=== PATIENT | female | born 1975 | race Caucasian/White ===

== ENCOUNTER 2021-02-22 07:45 | Outpatient (CLI) | payer BC | END 2021-02-22 07:46 | disposition home or self-care (01) | LOC: CSHCT 07:45 | PROVIDERS: ATTEND Family Medicine | DX: K46.9 Unspecified abdominal hernia without obstruction or gangrene (principal); K42.9 Umbilical hernia without obstruction or gangrene | CPT/HCPCS: 74150 ==

== ENCOUNTER 2022-02-11 07:58 | Outpatient (CLI) | payer BC | END 2022-02-11 07:59 | disposition home or self-care (01) | LOC: CSHMAMMO 07:58 | PROVIDERS: ATTEND Family Medicine | DX: Z12.31 Encounter for screening mammogram for malignant neoplasm of breast (principal); R92.1 Mammographic calcification found on diagnostic imaging of breast | CPT/HCPCS: 77063; 77067 ==

== ENCOUNTER 2022-02-20 12:52 | Outpatient (CLI) | payer BC | END 2022-02-20 12:53 | disposition home or self-care (01) | LOC: CSHMAMMO 12:52 | PROVIDERS: ATTEND Family Medicine | DX: R92.1 Mammographic calcification found on diagnostic imaging of breast (principal) ==